=== PATIENT | male | born 1945 | race Caucasian/White ===

== ENCOUNTER 2022-04-27 19:27 | Emergency (ER) | payer MEDICARE, OTHER, SELFPAY ==
--- NOTE | ~2022-04-27 | XR_ITS ---
EXAMINATION: XR chest 1V portable DATE: 04/27/2022 20:48 INDICATION: Weakness TECHNIQUE: Upright AP view of the chest was obtained. COMPARISON: Chest radiograph dated 12/16/[address] dated 12/17/2018 FINDINGS: Mild linear discoid atelectasis at the lateral left lower lung zone. No other airspace opacities, pul monary edema, pleural effusion or pneumothorax. The cardiomediastinal silhouette is normal. Suture an chors at the right humeral head likely related to prior rotator cuff repair. IMPRESSION: 1. 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 No acute cardiopulmonary di sease. Reviewed, dictated and finalized at location A. IMPRESSION: 1. 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 No ac [place] cardiopulmonary disease.
[2022-04-27 19:31] VITALS: BP 212/99; PULSE 99; RESP 14; TEMP 38.3; O2SAT 95
--- NOTE | 2022-04-27 19:38 | ECG_ITS ---
Measurements Intervals [place] Rate: 99 P: -7 AR: 174 QRS: 13 QRSD: 76 T: 62 QT: 316 QTc: 405 Interpretive Statements SINUS RHYTHM NONSPECIFIC T-WAVE ABNORMALITY COMPARED TO ECG 12/16/2018 16:43:51 T-WAVE ABNORMALITY NOW PRESENT Electronically Signed On 04-28-2022 8:51:32 CDT by Pilar Longo M.D.
[2022-04-27 20:07] LABS: Basophils Percent Auto 0.4 % (0.2-1.2); Eosinophils Absolute Auto 0.4 K/mm3 (0-0.3); Eosinophils Percent Auto 4.1 % (0-4.4); Hematocrit 42.3 % (42.0-52.0); Immature Granulocyte Absolute 0.03 K/mm3 (0.00-0.031); Immature Granulocyte Percent A 0.3 % (0-0.5); Lymphocytes Absolute Auto 0.71 K/mm3 (0.9-3.2); Lymphocytes Percent Auto 7.8 % (18.3-44.2); Mean Corpuscular HGB Conc 33.1 g/dl (32-36); Mean Corpuscular Hemoglobin 28.9 pg (26-34); Mean Corpuscular Volume 87.4 fl (80-100); Mean Platelet Volume 9.7 fl (7.4-10.4); Monocytes Absolute Auto 1.1 K/mm3 (0.1-0.6); Neutrophils Absolute Auto 6.9 K/mm3 (1.3-6.7); Neutrophils Percent Auto 75.4 % (45.5-73.1); Platelet Count Result 285 k/mm3 (150-375); Red Blood Count 4.84 M/mm3 (4.6-6.20); White Blood Count 9.2 K/mm3 (4.5-10.0)
[2022-04-27 20:21] LABS: Alanine Aminotransferase 33 U/L (6-50); Albumin Level 4.8 g/dL (3.5-5.1); Alkaline Phosphatase 51 U/L (38-126); Anion Gap 16 mmol/L (8-16); Aspartate Amino Transferase 38 U/L (17-59); Bilirubin,Total 1.2 mg/dL (0.2-1.3); Blood Urea Nitrogen 14 mg/dL (9-20); Calcium 9.2 mg/dL (8.4-10.2); Carbon Dioxide 32 mmol/L (22-30); Chloride 93 mmol/L (98-107); Estimated CRCL calculation 54 ml/min; Estimated Glomerular Filt Rate > 60; Glucose 127 mg/dL (65-110); Potassium 3.1 mmol/L (3.4-5.0); Sodium 141 mmol/L (137-145)
--- NOTE | 2022-04-27 20:22 | ED.GENADULT ---
HPI - General Adult General Chief complaint: Weakness Stated complaint: bilateral leg weakness Time Seen by Provider: 04/27/22 20:12 History of Present Illness HPI narrative: This is a 76-year-old male presenting to ED with 1 day of a viral syndrome. Patient says he developed fever, productive cough, congestion and a headache. He has generalized weakness. He is also nauseous decreased p.o. intake. He denies chest pain, difficulty breathing, abdominal pain, urinary symptoms, nausea vomiting or diarrhea. He has been vaccinated against flu or COVID. He has no sick contacts at home. He may have taken some Tylenol this morning but he is not sure. The patient told triage that his legs were weak but on further questioning he just says that he is generally weak and not focally his legs Related Data Allergies Allergy/AdvReac Type Severity Reaction Status Date / Time No Known Allergies Allergy Unverified 12/16/18 15:58 Review of Systems Review of Systems: CONSTITUTIONAL: Denies night sweats. EYES: No eye pain ENT: Denies rhinorrhea CARDIOVASCULAR: Denies palpitations RESPIRATORY: Denies hemoptysis GASTROINTESTINAL: Denies hematemesis GENITOURINARY: Denies hematuria. SKIN: Denies rash MUSCULOSKELETAL: Denies myalgia. NEUROLOGIC: Denies weakness. PSYCHIATRIC: Denies delusions Exam Narrative: APPEARANCE: patient is lying supine in bed. She is in no obvious distress but appears tired. Head atraumatic. EYES: PERRLA/EOMI, NOSE: Normal no drainage NECK: Supple, Trachea midline RESPIRATORY: CTAB, No increased work of breathing. CARDIOVASCULAR: S1S2 appreciated , tachycardic ABDOMINAL: Soft, nontender, nondistended, MUSCULOSKELETAl: No obvious deformities NEURO: Alert. patient is globally weak but moving all 4 extremities SKIN:: Warm, dry. Normal color PSYCHIATRIC: Normal affect Course Vital Signs Vital signs: Vital Signs Temperature 101 F H 04/27/22 19:31 Pulse Rate 99 04/27/22 19:31 Respiratory Rate 14 04/27/22 19:31 Blood Pressure 212/99 H 04/27/22 19:31 Pulse Oximetry 95 04/27/22 19:31 Temperature 101 F H 04/27/22 19:31 Pulse Rate 99 04/27/22 19:31 Respiratory Rate 14 04/27/22 19:31 Blood Pressure 212/99 H 04/27/22 19:31 Pulse Oximetry 95 04/27/22 19:31 Medical Decision Making MDM Narrative Medical decision making narrative: This is a 76-year-old male presenting to ED with 1 day of flu-like symptoms. Patient was tested for flu and COVID. His lower extremity exam was normal and I think that his weakness is more generalized. We will get basic lab work to evaluate for electrolyte abnormalities dehydration. Patient given 2 L of fluid. Given Motrin Tylenol for symptom control. Chest x-ray was obtained. chest x-ray showed some atelectasis and scarring but no evidence of pneumonia or pulmonary edema. Patient's lab work was significant for hypo kalemia which could be the cause of the patient's leg symptoms. This will be repleted. COVID-19 was positive. Flu is negative. Urinalysis showed trace leuk esterase and some RBCs and white blood cells. However the patient's does not have any urinary symptoms at this time and is symptoms are better explained by COVID-19 infection. Upon re-evaluation the patient is feeling better. we walked the patient around the department and he has a steady gait and having no difficulty. We made sure the patient could eat and drink without issue. He would like to be discharged home. He was given strict return precautions as he is elderly and has higher risk for decompensation. The patient refused any offer of admission. Patient was instructed to follow up with his primary care physician in regards to his high blood pressure. Vital Signs Vital Signs: Vital Signs Temperature 101 F H 04/27/22 19:31 Pulse Rate 99 04/27/22 19:31 Respiratory Rate 14 04/27/22 19:31 Blood Pressure 212/99 H 04/27/22 19:31 Pulse Oximetry 95 1
[2022-04-27] MEDS: ACETAMINOPHEN 500 MG TABLET 1000 MG PO (20:31)
[2022-04-27] MEDS: SODIUM CHLORIDE 0.9% IV 2,000 ML 999 ML IV CONT (20:32)
[2022-04-27] MEDS: IBUPROFEN 400 MG TABLET 800 MG PO (20:32)
[2022-04-27 20:45] LABS: Influenza A QL RT-PCR Negative (Negative); Influenza B QL RT-PCR Negative (Negative); SARS-CoV-2 RNA PCR Positive
[2022-04-27 21:16] VITALS: BP 191/98; PULSE 95; RESP 21
[2022-04-27] MEDS: POTASSIUM CHLORIDE 20 MEQ TABLET 40 MEQ PO (21:26)
[2022-04-27 21:46] LABS: Add Urine Microscopic? YES; Appearance Urine Clear (Clear); Bacteria Urine Trace /hpf; Bilirubin Urine Negative (Negative); Blood Urine Negative (Negative); Color Urine Yellow (Yellow); Glucose Urine UA Negative (Negative); Ketones Urine Trace mg/dL (Negative); Leukocyte Esterase Ur Trace LEU/UL (Negative); Nitrate Urine Negative (Negative); Protein Urine 2+ mg/dL (Negative); Urobilinogen Urine Negative mg/dL (<2.0)
[2022-04-27 22:05] VITALS: BP 168/94; PULSE 93; RESP 18; O2SAT 95
[2022-04-27 22:06] VITALS: TEMP 36.9
[2022-04-27 22:07] VITALS: TEMP 36.9
[2022-04-27 22:55] VITALS: BP 170/89; PULSE 86; RESP 20; O2SAT 94
== END 2022-04-27 23:00 | disposition home or self-care (01) ==
PROVIDERS: Emergency Provider Emergency Medicine; PCP Internal Medicine
DX: U07.1 COVID-19 (principal); E87.6 Hypokalemia; E86.0 Dehydration; R94.31 Abnormal electrocardiogram [ECG] [EKG]
CPT/HCPCS: 36415; 71045; 80053; 81001; 85025; 87077; 87086; 87088; 87502; 93005; 96360; 96361; 99283; A9270; C9803; J7030; U0003; U0005